=== PATIENT | male | born 1975 | race Caucasian/White ===

== ENCOUNTER 2020-09-13 17:39 | Inpatient (IN) | payer OTHER, SELFPAY ==
[2020-09-13 17:53] VITALS: BP 187/107; PULSE 130; RESP 16; TEMP 37.5; O2SAT 98; BMI 28.0
--- NOTE | 2020-09-13 18:22 | ECG_ITS ---
Test Reason : TACHYCARDIA Blood Pressure : / mmHG Vent. Rate : 107 BPM Atrial Rate : 107 BPM P-R Int : 150 ms QRS Dur : 100 ms QT Int : 340 ms P-R-T Axes : 039 -37 014 degrees QTc Int : 453 ms Sinus tachycardia Left axis deviation Moderate voltage criteria for LVH, may be normal variant Abnormal ECG No previous ECGs available Referred By: Shameka Marinelli Electronically Signed By:BRENNAN HANSON MD
[2020-09-13 18:54] VITALS: BP 170/98; PULSE 115
[2020-09-13] MEDS: cloNIDine HCL 0.1 MG TABLET PO (18:54)
--- NOTE | 2020-09-13 18:54 | ED.ALCOHOL ---
HPI - Alcohol General Chief Complaint: ETOH/Substance Use Stated Complaint: withdrawal Time Seen by Provider: 09/13/20 18:21 Source: patient Mode of arrival: ambulatory Limitations: no limitations History of Present Illness HPI narrative: 45 yo male with history of longstanding history of alcohol abuse and dependence, hx alcohol withdrawal, hx HTN who presents with alcohol withdrawal. He reports trying to cut back on his daily ETOH, last drink was noon today. He drank 6 nips and a few beers this morning. A few hours after not drinking he starts having anxiety, tremors, and vomiting. He has been through alcohol withdrawal in the past, was admitted at [facility] in June for 3 days. He relapsed a few weeks later when he found out his daughter was again. He c/o palpitations and anxiety. MD complaint: alcohol withdrawal Last drink: Hours (ago) Chronic alcohol use: Yes Previous visits for alcohol intoxication: Yes Recent trauma: No Associated symptoms: nausea, vomiting, diaphoresis, tremors, melena and depression Treatments prior to arrival: none Related Data Allergies Allergy/AdvReac Type Severity Reaction Status Date / Time morphine AdvReac Itching Verified 09/13/20 18:00 Review of Systems Review of Systems: Constitutional: No Fever, No Chills ENT/Mouth: No sore throat, No Rhinorrhea, No Swallowing Difficulty Eyes: No Eye Pain, No Swelling, No Redness Cardiovascular: No Chest Pain, No SOB, No Orthopnea, No Edema Respiratory: No Cough, No Sputum, No Wheezing, No dyspnea Gastrointestinal: + Nausea, + Vomiting, No Diarrhea, No abdominal Pain, No Hematochezia, No Melena Genitourinary: No Dysuria, No Urinary Frequency, No Hematuria Musculoskeletal: No joint pain, No Myalgias Skin: No Skin Lesions, No rash Neuro: No Weakness, No Numbness, No Dizziness, + Headache Psych: + Anxiety/Panic, No Depression Heme/Lymph: No Bruising, No Lymphadenopathy Endocrine: No Polyuria, No Polydipsia PMFSH Past Medical History Medical History Alcohol abuse Social History Social History Alcohol intake: current Advance Directives: No Advance Directives Information Provided: Yes Physical Exam Vital Signs: Vital Signs: Last Vital Signs Temp 97.9 F 09/13/20 19:10 Pulse 110 H 09/13/20 20:39 Resp 20 09/13/20 20:39 BP 179/91 H 09/13/20 20:39 Pulse Ox 97 09/13/20 20:39 Body Mass Index 28.0 Appearance: Alert. Oriented X3. Anxious & diaphoretic. Eyes: Pupils equal, round and reactive to light. ENT: Pharynx normal. Neck: Normal inspection. Neck supple. CVS: rapid rate, regular rhythm Pulses normal. Respiratory: No respiratory distress. Breath sounds normal. Abdomen: Soft and nontender. +BS x4 Skin: Skin warm and dry. Normal skin color. Normal skin turgor. No rashes. Extremities: No lower extremity edema. Neuro: Oriented X 3. No motor deficit. No sensory deficit. Moderate bilateral hand tremors. Course Course Course Narrative: 45 y/o male presenting with signs and symptoms of alcohol withdrawal - tremulous, anxious, diaphoretic on arrival with HR 130's and BP 180/100's. Will give dose of Ativan and Clonidine now. Check EKG and labs. CIWA orderd. No check pain but reports palpitations. Denies drug use aside from marijuana. Reevaluation(s) Reevaluation #1: Slight improvement in VS after meds initially. CIWA 12. ETOH level 10. Will order phenobarbital load and plan for admisison. Reevaluation #2: Patient reporting increased anxiety, tremor and diaphoresis. Additional ativan ordered as well as banana bag. LFT's elevated however patient has no abdominal pain, likely related to ETOH abuse. Will plan to trend and reassess need for U/S. Spoke with Dr. Baig who will admit the patient for ETOH withdrawal. MDM - Alcohol Differential Diagnosis Differential diagnosis: Likely alcohol dependence, alcohol withdrawal delirium, hypomagnesemia, alcohol intoxication, alcohol ketoacidosis and alcohol withdrawal syndrome Medical Records Attestation: I reviewed the patient's medical records. Lab Data Attestation: I reviewed the patient's lab results. Result diagrams: 09/13/20 19:07 09/13/20 19:07 Labs: Lab Results 09/13/20 09/13/20 09/13/20 Range/Units 19:07 19:07 19:07 WBC 13.2 H (4.8-10.8) X10*3/uL RBC 4.04 L (4.60-5.80) X10*6/uL Hgb 14.1 (14.0-18.0) g/dl Hct 39.5 L (42-52) % MCV 97.8 (80-98) fL MCH 34.9 H (27.0-33.0) pg MCHC 35.7 (31.0-36.0) g/dl RDW 11.9 (11.0-16.0) % Plt Count 63 L (160-400) X10*3/uL MPV 10.7 (9.4-12.4) fL Immature Gran % (Auto) 0.2 (0.0-0.4) % Neut % (Auto) 71.7 (45-73) % Lymph % (Auto) 19.2 L (20-40) % [place] % (Auto) 7.8 (2-11) % Eos % (Auto) 0.8 (0-4) % Baso % (Auto) 0.3 (0-2) % Lymph # (Auto) 2.5 (1.2-4.9) X10*3/uL [place] # (Auto) 1.0 (0.1-1.2) X10*3/uL Eos # (Auto) 0.1 (0.0-0.4) X10*3/uL Baso # (Auto) 0.0 (0.0-0.2) X10*3/uL Abs Immat Gran (auto) 0.03 (0.00-0.03) X10*3/uL Absolute Neuts (auto) 9.5 H (2.0-8.3) X10*3/uL Absolute Nucleated RBC 0.000 (0.0-0.012) X10*3/uL Nucleated RBC % (auto) 0.0 (0.0-0.2) /100WBC Smear Tech's Comments VERIFIED Hold Blue Top SEE NOTE Sodium 135 (135-145) mmol/L Potassium 3.8 (3.3-5.1) mmol/l Chloride 96 (96-108) mmol/L Carbon Dioxide 25 (22-29) mmol/L Anion Gap 18 (12-20) BUN 15 (9-16) mg/dL Creatinine 0.74 (0.5-1.4) mg/dL Estim Creat Clear Calc 135.6 Estimated GFR > 60 Random Glucose 112 (60-115) mg/dL Calcium 9.4 (8.4-10.2) mg/dL Magnesium 1.7 (1.6-2.6) mg/dL Total Bilirubin 0.9 (0.0-1.0) mg/dL Direct Bilirubin 0.7 H (0.0-0.5) mg/dL AST 112 H (5-37) U/L ALT 80 H (0-40) U/L Alkaline Phosphatase 200 H (39-117) U/L Total Protein 6.6 (6.5-8.0) g/dL Albumin 4.2 (3.5-5.0) g/dL Lipase 103 H (8-78) U/L Urine Color Urine Appearance Urine pH (5.0-8.0) Ur Specific [place] (1.005-1.025) Urine Protein (NEG-TRACE) MG/DL Urine Glucose (UA) (NEG) MG/DL Urine Ketones (NEG) MG/DL Urine Blood (NEG) Urine Nitrite (NEG) Ur Leukocyte Esterase (NEG) Urine Opiates Screen (Not Detect) Ur Barbiturates Screen (Not Detect) Ur Phencyclidine Scrn (Not Detect) Ur Amphetamines Screen (Not Detect) U Benzodiazepines Scrn (Not Detect) Urine Cocaine Screen (Not Detect) U Marijuana (THC) Screen (Not Detect) Ethyl Alcohol mg/dL 09/13/20 09/13/20 09/13/20 Range/Units 19:07 19:18 19:18 WBC (4.8-10.8) X10*3/uL RBC (4.60-5.80) X10*6/uL Hgb (14.0-18.0) g/dl Hct (42-52) % MCV (80-98) fL MCH (27.0-33.0) pg MCHC (31.0-36.0) g/dl RDW (11.0-16.0) % Plt Count (160-400) X10*3/uL MPV (9.4-12.4) fL Immature Gran % (Auto) (0.0-0.4) % Neut % (Auto) (45-73) % Lymph % (Auto) (20-40) % [place] % (Auto) (2-11) % Eos % (Auto) (0-4) % Baso % (Auto) (0-2) % Lymph # (Auto) (1.2-4.9) X10*3/uL [place] # (Auto) (0.1-1.2) X10*3/uL Eos # (Auto) (0.0-0.4) X10*3/uL Baso # (Auto) (0.0-0.2) X10*3/uL Abs Immat Gran (auto) (0.00-0.03) X10*3/uL Absolute Neuts (auto) (2.0-8.3) X10*3/uL Absolute Nucleated RBC (0.0-0.012) X10*3/uL Nucleated RBC % (auto) (0.0-0.2) /100WBC Smear Tech's Comments Hold Blue Top Sodium (135-145) mmol/L Potassium (3.3-5.1) mmol/l Chloride (96-108) mmol/L Carbon Dioxide (22-29) mmol/L Anion Gap (12-20) BUN (9-16) mg/dL Creatinine (0.5-1.4) mg/dL Estim Creat Clear Calc Estimated GFR Random Glucose (60-115) mg/dL Calcium (8.4-10.2) mg/dL Magnesium (1.6-2.6) mg/dL Total Bilirubin (0.0-1.0) mg/dL Direct Bilirubin (0.0-0.5) mg/dL AST (5-37) U/L ALT (0-40) U/L Alkaline Phosphatase (39-117) U/L Total Protein (6.5-8.0) g/dL Albumin (3.5-5.0) g/dL Lipase (8-78) U/L Urine Color YELLOW Urine Appearance CLEAR Urine pH 6.0 (5.0-8.0) Ur Specific [place] 1.015 (1.005-1.025) Urine Protein NEG (NEG-TRACE) MG/DL Urine Glucose (UA) NEG (NEG) MG/DL Urine Ketones NEG (NEG) MG/DL Urine Blood NEG (NEG) Urine Nitrite NEG (NEG) Ur Leukocyte Esterase NEG (NEG) Urine Opiates Screen Not Detected (Not Detect) Ur Barbiturates Screen Not Detected (Not Detect) Ur Phencyclidine Scrn Not Detected (Not Detect) Ur Amphetamines Screen Not Detected (Not Detect) U Benzodiazepines Scrn Not Detected (Not Detect) Urine Cocaine Screen Not Detected (Not Detect) U Marijuana (THC) Screen POSITIVE H (Not Detect) Ethyl Alcohol 10 mg/dL ECG Data Attestation: I personally reviewed and interpreted this ECG as follows: ECG interpretation date: 09/13/20 ECG interpretation time: 19:55 Interpretation: sinus tachycardia, HR 107 bpm, normal PA interval, normal QTc, isolated T-wave inversion in lead III. Discharge Plan Discharge Clinical Impression: Elevated liver enzymes Alcohol withdrawal syndrome Qualifiers: Complication of substance-induced condition: uncomplicated Qualified Code(s): F10.230 - Alcohol dependence with withdrawal, uncomplicated Patient Disposition: Admitted As Inpatient
[2020-09-13] MEDS: LORazepam 1 MG TABLET PO ×2 (18:55→20:32)
--- NOTE | 2020-09-13 19:09 | MHC.RECOVSUP ---
Reason for consult o Current location: [facility] o Identified substance use concern: Alcohol - - Withdrawal - Seeking ATS (detox) - Support ? Intervention: o o o Community resources provided o Harm reduction discussion ? Plan: o o o Follow up tomorrow o o Patient to follow up with HF after discharge ? Additional information: pt came in to ED in active withdrawal from alcohol and seeking information for detox. he then stated that he much rather go to IOP with [facility] because he works M-F from 5am-5pm. I provided him with info and a direct number for him to call and make contact to start doing IOP. I also provided him with 12 step support groups, CCC, HFH and recovery coaching.
[2020-09-13 19:10] VITALS: BP 170/98; PULSE 115; RESP 22; TEMP 36.6; O2SAT 97
[2020-09-13 19:15] LABS: Basophils Percent Auto 0.3 % (0-2); Eosinophils Percent Auto 0.8 % (0-4); MANUAL DIFF FLAG SCAN; Monocytes Percent Auto 7.8 % (2-11); PLT CLUMP 1; Red Cell Distribution Width 11.9 % (11.0-16.0); SCAN SMEAR FLAG 1
[2020-09-13 19:17] LABS: Eosinophils Absolute Auto 0.1 X10*3/uL (0.0-0.4); Hematocrit 39.5 % (42-52); Hemoglobin 14.1 g/dl (14.0-18.0); Imm Gran Abs Auto 0.03 X10*3/uL (0.00-0.03); Imm Gran Pct Auto 0.2 % (0.0-0.4); Lymphocytes Absolute Auto 2.5 X10*3/uL (1.2-4.9); Lymphocytes Percent Auto 19.2 % (20-40); Mean Corpuscular HGB Conc 35.7 g/dl (31.0-36.0); Mean Corpuscular Hemoglobin 34.9 pg (27.0-33.0); Mean Corpuscular Volume 97.8 fL (80-98); Mean Platelet Volume 10.7 fL (9.4-12.4); Neutrophils Absolute Auto 9.5 X10*3/uL (2.0-8.3); Neutrophils Percent Auto 71.7 % (45-73); Red Blood Count 4.04 X10*6/uL (4.60-5.80); White Blood Count 13.2 X10*3/uL (4.8-10.8)
[2020-09-13] MEDS: 0.9 % Sodium Chloride 1,000 ML 999 ML IVCONT (19:17)
[2020-09-13 19:20] LABS: Platelet Count 63 X10*3/uL (160-400)
[2020-09-13 19:27] LABS: Glucose Urine UA NEG (NEG); Leukocyte Esterase Urine NEG (NEG); Nitrite Urine NEG (NEG); Specific Gravity - Urine 1.015 (1.005-1.025); Urine Blood NEG (NEG); Urine Ketones NEG (NEG); Urine Protein NEG (NEG-TRACE)
[2020-09-13 19:32] LABS: Appearance Urine CLEAR; Color Urine YELLOW
[2020-09-13 19:37] LABS: Ethanol 10 mg/dL
[2020-09-13 19:51] LABS: Alanine Aminotransferase 80 U/L (0-40); Albumin Level 4.2 g/dL (3.5-5.0); Alkaline Phosphatase 200 U/L (39-117); Anion Gap 18 (12-20); Aspartate Amino Transferase 112 U/L (5-37); Bilirubin Direct 0.7 mg/dL (0.0-0.5); Bilirubin Total 0.9 mg/dL (0.0-1.0); Blood Urea Nitrogen 15 mg/dL (9-16); Calcium 9.4 mg/dL (8.4-10.2); Carbon Dioxide 25 mmol/L (22-29); Chloride 96 mmol/L (96-108); Creatinine Clr Calc Pharmacy 135.6; Estimated Glomerular Filt Rate > 60; Glucose Random 112 mg/dL (60-115); Magnesium 1.7 mg/dL (1.6-2.6); Potassium 3.8 mmol/l (3.3-5.1); Sodium 135 mmol/L (135-145); Total Protein 6.6 g/dL (6.5-8.0)
[2020-09-13 19:52] LABS: SLIDE REVIEW VERIFIED
[2020-09-13 20:05] LABS: Amphetamine Screen Urine Not Detected (Not Detect); Barbiturates, Urine Not Detected (Not Detect); Benzodiazepines Screen Urine Not Detected (Not Detect); Cannabinoid Screen Urine POSITIVE (Not Detect); Cocaine Screen Urine Not Detected (Not Detect); Opiate Screen Urine Not Detected (Not Detect); Phencyclidine Screen Urine Not Detected (Not Detect)
[2020-09-13 20:07] LABS: Lipase 103 U/L (8-78)
[2020-09-13] MEDS: PHENobarbitaL sodium 130 MG/ML VIAL 224 MG IM (20:32)
--- NOTE | 2020-09-13 20:33 | PC.NURSE ---
Pt medicated with Ativan and Phenobarb. Pharm called for banana bag. Continue to monitor.
[2020-09-13 20:39] VITALS: BP 179/91; PULSE 110; RESP 20; O2SAT 97
[2020-09-13 21:09] VITALS: BP 151/98; PULSE 106; RESP 18; TEMP 37.1; O2SAT 97
[2020-09-13] MEDS: PHENobarbitaL sodium 130 MG/ML VIAL 168 MG IM (23:43)
--- NOTE | 2020-09-13 23:45 | PC.NURSE ---
Pt medicated with Pheno per OCT. VSS. Plan to transfer to room 7 once clean.
[2020-09-13 23:50] VITALS: BP 148/76; PULSE 83; RESP 16
--- NOTE | 2020-09-14 00:36 | PC.NURSE ---
Hospitalist at bedside for eval.
--- NOTE | 2020-09-14 02:22 | P.HPHOSP_ITS ---
History of Present Illness Date of Service: 09/14/20 Chief Complaint: Alcohol withdrawal 45 year old man with alcohol dependence presented with worsening withdrawal symptoms. Patient had tried cutting back on his drinking as he hopes to pursue outpatient treatment through [facility]. Had several drinks this morning and then began to have tremor followed by nausea and vomiting thereafter so came for treatment. Received phenobarb in ED and symptoms improved. Currently no tremor and he is eating and alert and interactive. Per patient he has had withdrawal several times when he has attempted sobriety. Typical symptoms for him are tremor and nausea. No prior seizures or hallucinations. He is a dialy drinker and states he does not drink during workday but usually gets tremor by end of the day when he arrives home so starts drinking at that time. Review of Systems Constitutional: Comments: No fevers or chills Eyes: Comments: No vision changes ENT: Comments: No difficulty swallowing Cardiovascular: Comments: No chest pain Respiratory: Comments: No dyspnea or cough Gastrointestinal: Comments: No abd pain or current nausea/vomiting Musculoskeletal: Musculoskeletal: Reports no additional musculoskeletal complaints Integumentary/Breasts: Comments: No skin rashes Neurologic: Comments: No focal weakness or numbness Psychiatric: Comments: NO anxiety or agitation Hematologic/Lymphatic: Comments: No bruising reported [facility] Medical History (Updated 09/14/20 @ 02:28 by Edvin Ng MD) Alcohol abuse Gout HTN (hypertension) Family history: reviewed and not pertinent Social History Alcohol intake: current Advance Directives: No Advance Directives Information Provided: Yes Meds Allergies Allergy/AdvReac Type Severity Reaction Status Date / Time morphine AdvReac Itching Verified 09/13/20 18:00 Home Medications Medication Instructions Recorded Confirmed Type allopurinol 300 mg PO DAILY 09/14/20 09/14/20 History fosinopril 20 mg PO DAILY 09/14/20 09/14/20 History trazodone 200 mg PO BEDTIME PRN 09/14/20 09/14/20 History Physical Exam Vital Signs and Narrative: Vital Signs: Last Vital Signs Temp 98.8 F 09/13/20 21:09 Pulse 83 09/13/20 23:50 Resp 16 09/13/20 23:50 BP 148/76 H 09/13/20 23:50 Pulse Ox 97 09/13/20 21:09 Body Mass Index 28.0 Const: General: cooperative, healthy appearing, comfortable and no acute distress HENMT: Head: Yes normal to inspection General nose exam: Normal external nose present Mouth: Normal oral and palatal mucosa present Teeth and gingiva: dentition normal Eyes: Other: No scleral icterus or conjunctival injections Resp: Other: No insp crackles or exp wheezing Effort & Inspection: normal respiratory effort Cardio: Rate: regular rate Rhythm: regular rhythm Heart sounds: S1 normal heart sound present and S2 normal heart sound present GI: Other: Soft, nontender, nondistended, bowel sounds normal Inspection: Yes normal to inspection Skin: General skin exam: no rashes or lesions noted Neuro: Other: CN2-12 intact. Sensation to light touch intact in arms/legs. Strength symmetric and intact in arms/legs Extrem: Other: No leg edema General: Yes normal to inspection Results Labs CBC and Chem 7: 09/13/20 19:07 09/13/20 19:07 Labs: Laboratory Results - last 24 hr 09/13/20 09/13/20 09/13/20 19:07 19:07 19:07 MCV 97.8 MCH 34.9 H MCHC 35.7 RDW 11.9 Plt Count 63 L MPV 10.7 Immature Gran % (Auto) 0.2 Neut % (Auto) 71.7 Lymph % (Auto) 19.2 L [place] % (Auto) 7.8 Eos % (Auto) 0.8 Baso % (Auto) 0.3 Lymph # (Auto) 2.5 [place] # (Auto) 1.0 Eos # (Auto) 0.1 Baso # (Auto) 0.0 Abs Immat Gran (auto) 0.03 Absolute Neuts (auto) 9.5 H Absolute Nucleated RBC 0.000 Nucleated RBC % (auto) 0.0 Smear Tech's Comments VERIFIED Hold Blue Top SEE NOTE Anion Gap 18 Estim Creat Clear Calc 135.6 Estimated GFR > 60 Random Glucose 112 Calcium 9.4 Magnesium 1.7 Total Bilirubin 0.9 Direct Bilirubin 0.7 H AST 112 H ALT 80 H Alkaline Phosphatase 200 H Total Protein 6.6 Albumin 4.2 Lipase 103 H Urine Color Urine Appearance Urine pH Ur Specific [place] Urine Protein Urine Glucose (UA) Urine Ketones Urine Blood Urine Nitrite Ur Leukocyte Esterase Urine Opiates Screen Ur Barbiturates Screen Ur Phencyclidine Scrn Ur Amphetamines Screen U Benzodiazepines Scrn Urine Cocaine Screen U Marijuana (THC) Screen Ethyl Alcohol 09/13/20 09/13/20 09/13/20 19:07 19:18 19:18 MCV MCH MCHC RDW Plt Count MPV Immature Gran % (Auto) Neut % (Auto) Lymph % (Auto) [place] % (Auto) Eos % (Auto) Baso % (Auto) Lymph # (Auto) [place] # (Auto) Eos # (Auto) Baso # (Auto) Abs Immat Gran (auto) Absolute Neuts (auto) Absolute Nucleated RBC Nucleated RBC % (auto) Smear Tech's Comments Hold Blue Top Anion Gap Estim Creat Clear Calc Estimated GFR Random Glucose Calcium Magnesium Total Bilirubin Direct Bilirubin AST ALT Alkaline Phosphatase Total Protein Albumin Lipase Urine Color YELLOW Urine Appearance CLEAR Urine pH 6.0 Ur Specific [place] 1.015 Urine Protein NEG Urine Glucose (UA) NEG Urine Ketones NEG Urine Blood NEG Urine Nitrite NEG Ur Leukocyte Esterase NEG Urine Opiates Screen Not Detected Ur Barbiturates Screen Not Detected Ur Phencyclidine Scrn Not Detected Ur Amphetamines Screen Not Detected U Benzodiazepines Scrn Not Detected Urine Cocaine Screen Not Detected U Marijuana (THC) Screen POSITIVE H Ethyl Alcohol 10 Assessment and Plan (1) Alcohol withdrawal syndrome: Qualifiers: Complication of substance-induced condition: uncomplicated Qualified Code(s): F10.230 - Alcohol dependence with withdrawal, uncomplicated Status: Acute 45 year old man with history of alcohol dependence presented with withdrawal symptoms after cutting back on his intake. Alcohol withdrawal syndrome Improved symptoms when he was started on phenobarb. Continue for now. Add folate and thiamine. May need social work input on how to transition to [facility] as an outpatient. HTN Fosinopril nonformulary so substituted Lisinopril. Gout Not acute issue. Continue Allopurinol. DVT proph He ambulates so low risk. No SC Heparin or Lovenox needed. Code status Full.
[2020-09-14 02:33] VITALS: BP 135/76; PULSE 85; RESP 16
[2020-09-14 02:34] VITALS: TEMP 36.8
[2020-09-14] MEDS: PHENobarbitaL sodium 130 MG/ML VIAL 168 MG IM (02:46)
--- NOTE | 2020-09-14 02:48 | PC.NURSE ---
Pt found sleeping in bed, wakes easily to voice. Pt noted to be diaphoretic with sweat beads to brow and lip line. Pt denies any withdrawal symptoms, reports feeling much better since starting Phenobarb. Pt denies tremors, anxiety, N/V, hallucinations or agitation. Pt scoring a 5 on CIWA due to diaphoresis however pt states I'm always hot at night. Labs obtained per order. VSS. Pt reporting episodes of diarrhea, ambulating to the bathroom with a steady gait. Medicated with Phenobarb per OCT. Continue to monitor.
[2020-09-14 03:01] LABS: Imm Gran Abs Auto 0.02 X10*3/uL (0.00-0.03); Imm Gran Pct Auto 0.2 % (0.0-0.4); MANUAL DIFF FLAG SCAN; Mean Corpuscular HGB Conc 35.1 g/dl (31.0-36.0); Mean Corpuscular Hemoglobin 34.9 pg (27.0-33.0); Mean Corpuscular Volume 99.5 fL (80-98); Monocytes Absolute Auto 0.6 X10*3/uL (0.1-1.2); Monocytes Percent Auto 6.7 % (2-11); PLT CLUMP 1; SCAN SMEAR FLAG 1
[2020-09-14 03:03] LABS: Basophils Percent Auto 0.4 % (0-2); Eosinophils Absolute Auto 0.2 X10*3/uL (0.0-0.4); Eosinophils Percent Auto 2.1 % (0-4); Hematocrit 36.5 % (42-52); Hemoglobin 12.8 g/dl (14.0-18.0); Lymphocytes Absolute Auto 2.1 X10*3/uL (1.2-4.9); Lymphocytes Percent Auto 24.6 % (20-40); Mean Platelet Volume 11.6 fL (9.4-12.4); Neutrophils Absolute Auto 5.6 X10*3/uL (2.0-8.3); Red Blood Count 3.67 X10*6/uL (4.60-5.80); White Blood Count 8.5 X10*3/uL (4.8-10.8)
[2020-09-14 03:04] LABS: Platelet Count 43 X10*3/uL (160-400)
[2020-09-14 03:23] LABS: Anion Gap 15 (12-20); Blood Urea Nitrogen 13 mg/dL (9-16); Calcium 8.4 mg/dL (8.4-10.2); Carbon Dioxide 25 mmol/L (22-29); Chloride 101 mmol/L (96-108); Creatinine Clr Calc Pharmacy 133.8; Estimated Glomerular Filt Rate > 60; Glucose Random 160 mg/dL (60-115); Potassium 3.6 mmol/l (3.3-5.1); Sodium 137 mmol/L (135-145)
--- NOTE | 2020-09-14 05:35 | PC.NURSE ---
Covid swab obtained and sent by health physics technician. Pt resting in bed, awake and alert, denies pain/discomfort. Pt reports feeling great. VSS. CIWA obtained. Continue to monitor.
[2020-09-14 05:36] VITALS: BP 147/85; PULSE 85; RESP 20; O2SAT 98
[2020-09-14 06:01] LABS: COVID-19 Test Negative (Negative); IDNOW Serial# 9DD0AD1C
--- NOTE | 2020-09-14 08:55 | MHC.CARE ---
CARE Team met with Pt secondary to consult placed for alcholol use... . CARE Team followed up with Pt as a control and recovery combat rescue met with him yesterday (09/13/20). Pt declined needing additional information or support at this time. Pt requesting to be discharged from the ED. RN made aware.
[2020-09-14 09:14] VITALS: BP 149/84; PULSE 66
[2020-09-14] MEDS: Thiamine HCL 100 MG TABLET PO (09:14)
[2020-09-14] MEDS: Folic Acid 1 MG TABLET PO (09:14)
[2020-09-14] MEDS: allopurinoL 300 MG TABLET PO (09:14)
[2020-09-14] MEDS: 0.9 % Sodium Chloride Flush 3 ML SYRINGE IVFLUSH (09:15)
[2020-09-14] MEDS: PHENobarbitaL 15 MG TABLET 45 MG PO (09:15)
[2020-09-14 09:17] VITALS: BP 149/84; PULSE 75; RESP 16; O2SAT 98
--- NOTE | 2020-09-14 11:43 | PC.NURSE ---
pt requesting to be dc, call placed to hospitalist, coming to talk to patient.
--- NOTE | 2020-09-14 12:15 | PM.EVENT ---
Event Note Date of Service: 09/14/20 Event Note: Discharge summary Discharge diagnosis, alcohol withdrawal, Alcohol abuse, left AMA The patient was admitted to the hospital for alcohol withdrawal symptoms. He decided to leave the hospital against medical advice. I advised him against leaving the hospital to stay to finish his treatment per. He reports he has to work tomorrow and cannot take days off. He feels much better with no tremor or any signs of withdrawal at this point.
== END 2020-09-14 12:19 | disposition left against medical advice (07) | DRG 770 ==
LOC: HO.ED 19:58 → HO.EDOVER 09-14 06:27
PROVIDERS: Physician Assistant; Admitting Provider Internal Medicine; Emergency Provider Emergency Medicine; PCP Internal Medicine; Visit Provider Student in an Organized Health Care Education/Training Program
DX: F10.230 Alcohol dependence with withdrawal, uncomplicated (principal); I10 Essential (primary) hypertension; M10.9 Gout, unspecified; Z20.822 Contact with and (suspected) exposure to COVID-19; Z88.5 Allergy status to narcotic agent; Z79.899 Other long term (current) drug therapy
CPT/HCPCS: 36415; 80048; 80076; 80307; 80320; 81003; 83690; 83735; 85025; 87635; 93005; 96361; 96365; 96372; 99218; 99285; J2560; J3411

== ENCOUNTER 2024-08-20 10:51 | Outpatient (AMB) | payer BC, SELFPAY ==
--- OUTSIDE RECORDS SUMMARY | 2024-08-20 10:53 | XMS_ITS ---
Author Name [facility] Organization Unknown History of Medication Use Medication Directions Dispensed Refills Start Date End Date Stat amLODIPine (NORVASC) 10 MG tablet Take 10 mg by mouth daily. 09/09/2023 active aspirin enteric coated (ECOTRIN LOW STRENGTH) 81 MG EC tablet Take 81 mg by mouth. 09/09/2023 active sertraline (ZOLOFT) 50 MG tablet Take 50 mg by mouth daily. 09/09/2023 active allopurinol (ZYLOPRIM) 300 MG tablet Take 300 mg by mouth daily. 09/09/2023 active traZODone (DESYREL) 100 MG tablet TAKE 2 TABLETS BY MOUTH AT BEDTIME NEEDED FOR SLEEP. 09/09/2023 active Problems Problem Status Onset Date Problem Type Date of Resolution Source Hypertension active 2017-08-15 ProblemAct [facility] Aortic root dilatation active 2017-08-15 ProblemAct [facility] Encounter for screening laboratory testing for COVID-19 virus active EncounterDiagnosisAct [facility] Viral URI with cough active [facility]A [facility] Nonrheumatic aortic valve insufficiency active 2017-08-15 ProblemAct [facility] Mixed hyperlipidemia active 2017-08-15 ProblemAct [facility]
--- NOTE | 2024-08-20 11:02 | MHC.OFFVIS ---
Vital Signs 08/20/24 11:08 Height 5 ft 9 in Weight 213 lb 6 oz BMI 31.5 BP 166/90 H Blood Pressure Location Rt brachial Position Sitting Pulse 88 Pulse Source Pulse Oximeter Pulse Oximetry (%) 97 Oxygen Delivery Method Room Air Intake Visit Reasons: Chronic rt trap pain Intake Note: Pain today 04/07 Violent Crimes Detective Required: No Accompanied by: Self / Same As Patient Allergies morphine Adverse Reaction (Verified 08/20/24 11:12) Itching Medication List - Last Reconciled 08/20/24 by DEEPALI Hendrix allopurinol 300 mg PO DAILY amlodipine 10 mg PO DAILY sertraline 50 mg PO DAILY tadalafil (Cialis) 5 mg PO DAILY tizanidine 4 mg PO BEDTIME PRN trazodone 200 mg PO BEDTIME PRN HPI HPI Chronic rt trap pain: Details: Patient is a pleasant 49-year-old male with prior history of chronic right trapezius pain, history of left shoulder surgery, anxiety and depression, diabetes, alcohol dependence (sober for 3 years), former smoker, gout, presents today with right shoulder pain and posterior neck pain associated with radicular symptoms and muscle spasms. Denies any recent trauma, injury, or falls. Patient was seen by Dr. Bergman in the past and have received injections and also received trigger point injections by PCP few years ago with partial benefit. Patient reports he was also seen by another pain specialist in [place] in the past and underwent diagnostic cervical medial branch blocks is minimal relief lumbar spine injection with good relief. He is right-hand dominant and has been working in machine shop. Pain has been resistant to prior chiropractic adjustments, heat therapy, activity modifications, injections, muscle relaxants, marijuana edibles, opioids and home exercise program. Neck pain is increased with extension, lateral rotations and also radiates into right lower arm and into 2nd and 3rd digits with associated paresthesias. Patient also has difficulty with overhead reaching activities on the right. Pain has been present for over 3 years and is progressively getting worse there patient. Denies any fever or chills, dizziness, headache, visual disturbances, shortness of breath, weakness, bladder or bowel dysfunction or saddle anesthesia. Previous Procedures: 05/19/23: Right splenius capitis trigger point injection Cortisone injections, peripheral nerve blocks, nerve root injections Previous Evaluations: Pain management-Dr. Bergman at [facility], another provider in [place] -cannot recall location or date Orthopedics Chiropractor Rheumatology Location: Right side of neck radiates down mid back to lower right side of back Duration: 3 years Characteristics of symptom or complaint: Burning, throbbing, shooting, stabbing, dull ache, spasming, tight, stiff Aggravating or associated factors: Movement, lifting, reaching, pulling, ROM, sleep, work Relieving factors: Ice/heat therapy, muscle relaxants, opioids, topical, NSAIDs Treatment: Massage, chiropractic therapy, injections, TENS unit [facility] Medical History Lumbar spondylosis Polyarthralgia Controlled diabetes mellitus with hyperglycemia Erectile dysfunction Alcohol dependence Tobacco use disorder Anxiety Gout HTN (hypertension) Alcohol abuse Surgical History H/O arthroscopy of shoulder H/O inguinal hernia repair H/O umbilical hernia repair Hx of tonsillectomy Social History Alcohol intake: former Year quit: 2019 Patient Tobacco Use Status: Former Tobacco user Tobacco use type: Cigarette Substance Use Type Other:: gummies Review of Systems Const All systems reviewed & are unremarkable except as noted in HPI and below Physical Exam Vital Signs: Last Vital Signs Pulse 88 08/20/24 11:08 BP 166/90 H 08/20/24 11:08 Pulse Ox 97 08/20/24 11:08 Oxygen Delivery Method Room Air 08/20/24 11:08 BMI result Body Mass Index 31.5 General: Appears afebrile. Alert and oriented. Mood and affect appropriate. Follows and participates in conversation appropriately. Respiratory effort is unlabored. No cough. No nasal discharge. Able to transition from sit to stand unassisted. Ambulates with bilaterally normal heel strike and toe off. Neck Other: Patient with decreased cervical ROM in all planes/especially with right lateral rotation and bending. Reports increased pain with cervical extension than flexion. Spurling compression test is negative. Pain is unchanged by Spurling maneuver with retraction. Elvey's tension test positive on the right, with radiation of pain from neck to wrist and into right 2nd and 3rd digits. Lhermitte's test was negative. DTR intact, +2 and symmetrical. Patient demonstrated 5/5 motor strength of bilateral upper extremities. 2 + radial pulses. Significant tightness throughout right upper trapezius, splenius and levator muscles as well as TTP throughout bilateral upper trapezius muscles. No paravertebral tenderness over facet joints bilaterally. Neck: Yes normal visual inspection, Yes no lymphadenopathy, Yes supple, No anterior neck swelling, Yes no JVD, No prominent supraclavicular fat pad and Yes prominent dorsocervical fat pad Back/Spine/Pelvis Cervical Spine: No collar present, No Lhermitte's sign positive, loss of normal cervical lordosis, cervical muscular tenderness, pain with cervical ROM, No Cervical spine scars present, cervical spasm (right>left), No Cervical spine tenderness and No step off deformity Thoracic/Lumbar Spine: thoracic and lumbar spine normal to inspection, No Thoracic/lumbar spine scar(s), Lasegue's sign negative, straight leg raise negative bilaterally, No thoracic spinal tenderness and No lumbar spinal tenderness Extrem General: Yes capillary refill normal, Yes no clubbing, cyanosis or edema and Yes no calf tenderness Right upper extremity: shoulder/upper arm (Limited I/E ROM due to pain. +Empty can. Painful arc syndrome.) Details: normal to inspection, tenderness Location: of the A-C joint, over the biceps tendon, over the subacromial bursa and over the deltoid bursa, axillary nerve sensory function normal and crepitus; no swelling, no ecchymosis, no deformity and no unusual warmth Results Reviewed Results Reviewed: MR SHOULDER WITHOUT CONTRAST, RIGHT 05/12/22 at [facility] CLINICAL INFORMATION: Pain and weakness. Decreased range of motion. COMPARISON: None. TECHNIQUE: Multiplanar MR images of the shoulder were obtained on a high-field scanner without intravenous contrast. FINDINGS: ROTATOR CUFF: Mild supraspinatus and infraspinatus tendinosis. No focal tear. Teres minor is intact. Mild subscapularis tendinosis. No muscle atrophy or fatty infiltration. BICEPS: Intact. CORACOACROMIAL ARCH: The undersurface of the acromion is flat with no subacromial spur. Mild acromioclavicular arthritis. Small fluid in the subacromial-subdeltoid space. LABRUM/CAPSULE: Increased signal in superior labrum, probably degenerative. Increased signal in the posterosuperior labrum from degeneration and possible associated tear. Signal of the base of the anterosuperior labrum, probably sublabral foramen. Inferior capsule is intact. GLENOHUMERAL JOINT/MARROW: No fracture. No suspicious marrow signal changes. Small joint fluid. IMPRESSION: 1. Mild supraspinatus, infraspinatus and subscapularis tendinosis. No focal rotator cuff tear or tendon retraction is seen. 2. Posterosuperior labral findings suggest degeneration and possible associated tear. Probable superior labral degeneration. 3. Mild acromioclavicular arthritis. Mild subacromial-subdeltoid bursitis Assessment & Plan Assessment & Plan (1) Cervical radiculopathy: Code(s): M54.12 - Radiculopathy, cervical region Category: Medical (2) Cervical spondylosis: Code(s): M47.812 - Spondylosis without myelopathy or radiculopathy, cervical region Category: Medical (3) Right shoulder pain: Code(s): M25.511 - Pain in right shoulder Category: Medical (4) Myofascial neck pain: Code(s): M54.2 - Cervicalgia Category: Medical (5) Polyarthralgia: Code(s): M25.50 - Pain in unspecified joint Category: Medical Plan MRI of the cervical spine to assess for neural integrity and compression and right shoulder xray to assess degree of arthritis. Neck and shoulder pain have been resistant to previous conservative treatments and ongoing home exercise program, NSAIDs, ice/heat, massages, muscle relaxants, and short term opioids. Discussed interventional treatments for shoulder and neck pain including diagnostic versus therapeutic injections, neuromodulation, RFA, and PRP procedures. Informational pamphlets provided to patient today. Script provided for gabapentin. Side effects and precautions were discussed with patient. All questions and concerns have been answered and patient agreed with the treatment plan. Follow-up for x-rays/MRI results and sooner as needed. Orders: Orders MR cervical spine wo con 08/20/24 M47.812 - Spondylosis without myelopathy or radiculopathy, cervical region, M54.12 - Radiculopathy, cervical region XR shoulder RT min 2V 08/20/24 M25.511 - Pain in right shoulder, M54.2 - Cervicalgia Medications: New gabapentin 300 mg PO TID 30 days 90 caps 0RF pain M47.812 - Spondylosis without myelopathy or radiculopathy, cervical region, M54.12 - Radiculopathy, cervical region Coding Level of Care Code New Pt Level 4 (85624) Complex EM visit Add On G2211 Diagnoses Cervical radiculopathy M54.12 Cervical spondylosis M47.812 Right shoulder pain M25.511 Myofascial neck pain M54.2 Polyarthralgia M25.50
[2024-08-20 11:08] VITALS: BP 166/90; PULSE 88; O2SAT 97; BMI 31.5
== END 2024-08-20 11:58 | disposition home or self-care (01) ==
PROVIDERS: PCP Internal Medicine; Visit Provider Nurse Practitioner Family
DX: M54.12 Radiculopathy, cervical region (principal); M47.812 Spondylosis without myelopathy or radiculopathy, cervical region; M25.511 Pain in right shoulder; M54.2 Cervicalgia; M25.50 Pain in unspecified joint
CPT/HCPCS: 99204